=== PATIENT | female | born 1970 | race African-American/Black ===

== ENCOUNTER 2021-01-31 21:09 | Emergency (ER) | payer MEDICARE, MEDICAID ==
[~2021-01-31] VITALS: Ht 162.6 cm; Wt 62.5 kg
[~2021-01-31 21:09] MED LIST: BUPR-49 PO; CHLO100T31 PO; DIVA-112 PO
[2021-01-31] MEDS ORDERED: SODIUM CHLORIDE 0.9% 1,000 ML IV ONE (22:30)
[2021-01-31 22:43] LABS: BASOPHILS % (AUTO) 0.8 % (0.0-2.0); EOSINOPHILS % (AUTO) 0.5 % (1.0-6.0); HEMATOCRIT 42.8 % (36-46); HEMOGLOBIN 14.2 g/dL (12.0-16.0); LYMPHOCYTES # (AUTO) 2.8 K/uL (1.0-4.8); LYMPHOCYTES % (AUTO) 38.6 % (22.0-44.0); MEAN CORPUSCULAR HEMOGLOBIN 32.3 pg (26.0-34.0); MEAN CORPUSCULAR HGB CONC 33.2 G/dL (31.0-37.0); MEAN CORPUSCULAR VOLUME 98 fL (80-100); MONOCYTES # (AUTO) 0.7 K/uL (0.1-1.0); MONOCYTES % (AUTO) 9.3 % (2.0-9.0); NEUTROPHILS # (AUTO) 3.7 K/uL (1.8-7.7); NEUTROPHILS % (AUTO) 50.8 % (40.0-70.0); PLATELET COUNT (AUTO) 403 K/uL (150-450); RED BLOOD CELL COUNT(AUTO) 4.39 MIL/uL (4.00-5.20); RED CELL DISTRIBUTION WIDTH 13.1 % (11.5-14.5)
[2021-01-31 22:55] LABS: ANION GAP 14 mmol/L (8-16); CARBON DIOXIDE 25 mmol/L (22-29); CHLORIDE 104 mmol/L (98-107); CREATININE 0.77 mg/dL (0.60-1.30); GLOMERULAR FILTR. RATE CALC > 60 mL/min (>60); GLUCOSE,RANDOM 113 mg/dL (70-110); POTASSIUM 3.2 mmol/L (3.5-5.1); SODIUM SERUM 143 mmol/L (136-145); UREA NITROGEN, BLOOD 12 mg/dL (7-18)
[2021-01-31 23:02] LABS: ALANINE AMINOTRANSFERASE 54 U/L (12-78); ALBUMIN 3.9 g/dL (3.4-5.0); ALKALINE PHOSPHATASE 202 U/L (46-116); ASPARTATE AMINOTRANSFERASE 38 U/L (15-37); BILIRUBIN,TOTAL 0.2 mg/dL (0.1-1.0); TOTAL PROTEIN, SERUM 7.9 g/dL (6.4-8.2)
[2021-02-01 05:00] LABS: AMPHET/METH SCREEN,URINE NEGATIVE (NEGATIVE); BARBITURATE SCREEN, URINE NEGATIVE (NEGATIVE); BENZODIAZEPINES SCREEN,URINE NEGATIVE (NEGATIVE); CANNABINOID SCREEN,URINE NEGATIVE (NEGATIVE); COCAINE SCREEN,URINE NEGATIVE (NEGATIVE); METHADONE SCREEN, URINE NEGATIVE (NEGATIVE); OPIATE SCREEN,URINE NEGATIVE (NEGATIVE)
[2021-02-01 05:01] LABS: PHENCYCLIDINE SCREEN,URINE NEGATIVE (NEGATIVE)
[2021-02-01 05:30] VITALS: BP 115/72
== END 2021-02-01 06:00 | disposition home or self-care (01) ==
LOC: EMS 21:09
DX: F10.129 Alcohol abuse with intoxication, unspecified (principal); E87.6 Hypokalemia; Y90.8 Blood alcohol level of 240 mg/100 ml or more
CPT/HCPCS: 36415; 80053; 80307; 85025; 96360; 99284; G0480

== ENCOUNTER 2021-07-06 00:10 | Inpatient (IN) | payer MEDICARE, MEDICAID ==
[~2021-07-06] VITALS: Ht 162.6 cm; Wt 57.7 kg
[~2021-07-06 00:10] MED LIST changes: -BUPR-49 PO; -CHLO100T31 PO; -DIVA-112 PO; +DIVA-80 PO; +MELA5TAB40 PO; +NALT50TA PO; +OLAN5TAB94 PO; +OMEG-135 PO
[2021-07-06] MEDS ORDERED: LORazepam 2 MG/ML VIAL IM ONE ×2 (00:45→01:15)
[2021-07-06] MEDS ORDERED: DiphenhydrAMINE HCL 50 MG/ML VIAL IM ONE (00:45)
[2021-07-06] MEDS ORDERED: HALOPERIDOL LACTATE 5 MG/ML VIAL IM ONE (00:45)
[2021-07-06 01:34] LABS: COVID AG,FIA SOURCE NASOPHARYNGEAL
[2021-07-06 03:31] LABS: HEMATOCRIT 38.8 % (36-46); HEMOGLOBIN 12.8 g/dL (12.0-16.0); MEAN CORPUSCULAR HEMOGLOBIN 32.1 pg (26.0-34.0); MEAN CORPUSCULAR VOLUME 97 fL (80-100); PLATELET COUNT (AUTO) 248 K/uL (150-450); RED BLOOD CELL COUNT(AUTO) 3.99 MIL/uL (4.00-5.20); RED CELL DISTRIBUTION WIDTH 12.2 % (11.5-14.5)
[2021-07-06 03:41] LABS: ALANINE AMINOTRANSFERASE 78 U/L (12-78); ALBUMIN 3.3 g/dL (3.4-5.0); ALKALINE PHOSPHATASE 155 U/L (46-116); ASPARTATE AMINOTRANSFERASE 67 U/L (15-37); BILIRUBIN,TOTAL 0.6 mg/dL (0.1-1.0); CALCIUM, TOTAL 8.7 mg/dL (8.8-10.5); CARBON DIOXIDE 26 mmol/L (22-29); CHLORIDE 101 mmol/L (98-107); GLOMERULAR FILTR. RATE CALC > 60 mL/min (>60); GLUCOSE,RANDOM 95 mg/dL (70-110); TOTAL PROTEIN, SERUM 6.7 g/dL (6.4-8.2); UREA NITROGEN, BLOOD 12 mg/dL (7-18)
[2021-07-06 03:53] LABS: BAND NEUTROPHILS % (MANUAL) 4 % (0-5); LYMPHOCYTES % (MANUAL) 19 % (22-44); MONOCYTES % (MANUAL) 21 % (2-9); SEGMENTED NEUTROPHILS % 56 % (40-70)
[2021-07-06 03:57] LABS: VALPROIC ACID < 3 mcg/mL (50-100)
[2021-07-06 03:59] LABS: ANION GAP 16 mmol/L (8-16); POTASSIUM 3.1 mmol/L (3.5-5.1); SODIUM SERUM 143 mmol/L (136-145)
[2021-07-06] MEDS ORDERED: POTASSIUM CHLORIDE 10% 40 MEQ/30 ML LIQUID UDCUP PO ONE (05:00)
[2021-07-06] MEDS ORDERED: GuaiFENesin/D-METHORPHAN [SUGAR-FREE] 200-20MG/10 ML SYRUP UDCUP PO PRN (09:30)
[2021-07-06] MEDS ORDERED: MAGNESIUM HYDROXIDE SUSPENSION 30 ML UDCUP PO PRN (09:30)
[2021-07-06] MEDS ORDERED: LOPERAMIDE HCL 2 MG CAPSULE PO PRN (09:30)
[2021-07-06] MEDS ORDERED: INFLUENZA VIRUS VACCINE QVS 2021-22 (6MO+)/PF 60 MCG/0.5 ML SYRINGE IM. ONE (09:30)
[2021-07-06] MEDS ORDERED: PALIPERIDONE PALMITATE 234 MG/1.5 ML SYRINGE IM ONE (09:30)
[2021-07-06] MEDS ORDERED: HydrOXYzine PAMOATE 50 MG CAPSULE PO PRN (09:30)
[2021-07-06] MEDS ORDERED: PROMETHAZINE HCL 25 MG TABLET PO PRN (09:30)
[2021-07-06] MEDS ORDERED: MAG HYDROX/AL HYDROX/SIMETH ES 30 ML SUSPENSION UDCUP PO PRN (09:30)
[2021-07-06 10:23] VITALS: BP 122/42
[2021-07-06] MEDS: THIAMINE 100 MG TABLET PO SCH (16:41)
[2021-07-06 17:40] VITALS: BP 104/69
[2021-07-06] MEDS: OLANZapine 5 MG RAPDIS TABLET PO SCH (20:27)
[2021-07-06] MEDS: DIVALPROEX SODIUM 500 MG ER TABLET PO SCH (20:27)
[2021-07-06] MEDS: MELATONIN 5 MG TABLET PO SCH (20:27)
[2021-07-07 01:02] VITALS: BP 102/77
[2021-07-07 08:38] LABS: CHOL/HDL RATIO 3.7 (3.9-5.7)
[2021-07-07 08:49] LABS: HEMOGLOBIN A1C 5.6 % (3.8-5.6)
[2021-07-07] MEDS: MULTIVITAMINS WITH MINERALS, THERAPEUTIC TABLET PO SCH (09:31)
[2021-07-07] MEDS: OMEGA-3/DHA/EPA/FISH OIL 1,000 MG CAPSULE PO SCH (09:31)
[2021-07-07] MEDS: NALTREXONE HCL 50 MG TABLET PO SCH (09:31)
[2021-07-07] MEDS: FOLIC ACID 1 MG TABLET PO SCH (09:31)
[2021-07-07] MEDS: ATORVASTATIN CALCIUM 10 MG TABLET PO SCH (09:32)
[2021-07-07] MEDS: THIAMINE 100 MG TABLET PO SCH ×2 (09:32→16:38)
[2021-07-07] MEDS: LORazepam 2 MG TABLET PO PRN (11:55)
[2021-07-07 16:08] VITALS: BP 137/88
[2021-07-07] MEDS: DIVALPROEX SODIUM 500 MG ER TABLET PO SCH (20:20)
[2021-07-07] MEDS: OLANZapine 5 MG RAPDIS TABLET PO SCH (20:20)
[2021-07-07] MEDS: MELATONIN 5 MG TABLET PO SCH (20:20)
[2021-07-07] MEDS: ZOLPIDEM TARTRATE 10 MG TABLET PO PRN (20:22)
[2021-07-08 01:25] VITALS: BP 124/77
[2021-07-08] MEDS: THIAMINE 100 MG TABLET PO SCH ×2 (07:51→20:42)
[2021-07-08] MEDS: FOLIC ACID 1 MG TABLET PO SCH (07:51)
[2021-07-08] MEDS: MULTIVITAMINS WITH MINERALS, THERAPEUTIC TABLET PO SCH (07:51)
[2021-07-08] MEDS: NALTREXONE HCL 50 MG TABLET PO SCH (07:51)
[2021-07-08] MEDS: OMEGA-3/DHA/EPA/FISH OIL 1,000 MG CAPSULE PO SCH (07:51)
[2021-07-08] MEDS: LORazepam 2 MG TABLET PO PRN (07:51)
[2021-07-08] MEDS: ATORVASTATIN CALCIUM 10 MG TABLET PO SCH (07:51)
[2021-07-08] MEDS: OLANZapine 5 MG RAPDIS TABLET PO PRN (08:01)
[2021-07-08] MEDS ORDERED: LORazepam 2 MG/ML VIAL IM ONE (17:30)
[2021-07-08] MEDS ORDERED: HALOPERIDOL LACTATE 5 MG/ML VIAL IM ONE (17:30)
[2021-07-08] MEDS: MELATONIN 5 MG TABLET PO SCH (20:42)
[2021-07-08] MEDS: DIVALPROEX SODIUM 500 MG ER TABLET PO SCH (20:43)
[2021-07-08] MEDS: OLANZapine 5 MG RAPDIS TABLET PO SCH (20:43)
[2021-07-09 01:09] VITALS: BP 118/72
[2021-07-09 08:13] VITALS: BP 122/74
[2021-07-09] MEDS: THIAMINE 100 MG TABLET PO SCH ×2 (08:32→16:22)
[2021-07-09] MEDS: NALTREXONE HCL 50 MG TABLET PO SCH (08:34)
[2021-07-09] MEDS: LORazepam 2 MG TABLET PO PRN ×2 (08:34→14:27)
[2021-07-09] MEDS: ATORVASTATIN CALCIUM 10 MG TABLET PO SCH (08:34)
[2021-07-09] MEDS: MULTIVITAMINS WITH MINERALS, THERAPEUTIC TABLET PO SCH (08:34)
[2021-07-09] MEDS: OMEGA-3/DHA/EPA/FISH OIL 1,000 MG CAPSULE PO SCH (08:34)
[2021-07-09] MEDS: FOLIC ACID 1 MG TABLET PO SCH (08:34)
[2021-07-09] MEDS: VALPROIC ACID 250 MG/5 ML SOLUTION UDCUP PO SCH ×2 (09:00→16:22)
[2021-07-09] MEDS: OLANZapine 5 MG RAPDIS TABLET PO PRN (09:35)
[2021-07-09 16:08] VITALS: BP 150/71
[2021-07-09] MEDS: MELATONIN 5 MG TABLET PO SCH (20:19)
[2021-07-09] MEDS: OLANZapine 5 MG RAPDIS TABLET PO SCH (20:19)
[2021-07-10 01:37] VITALS: BP 134/73
[2021-07-10] MEDS: ATORVASTATIN CALCIUM 10 MG TABLET PO SCH (08:17)
[2021-07-10] MEDS: FOLIC ACID 1 MG TABLET PO SCH (08:26)
[2021-07-10] MEDS: THIAMINE 100 MG TABLET PO SCH ×2 (08:26→15:58)
[2021-07-10] MEDS: NALTREXONE HCL 50 MG TABLET PO SCH (08:26)
[2021-07-10] MEDS: MULTIVITAMINS WITH MINERALS, THERAPEUTIC TABLET PO SCH (08:26)
[2021-07-10] MEDS: LORazepam 2 MG TABLET PO PRN ×2 (08:26→13:13)
[2021-07-10] MEDS: OMEGA-3/DHA/EPA/FISH OIL 1,000 MG CAPSULE PO SCH (08:26)
[2021-07-10] MEDS: OLANZapine 5 MG RAPDIS TABLET PO PRN (08:27)
[2021-07-10] MEDS: VALPROIC ACID 250 MG/5 ML SOLUTION UDCUP PO SCH ×3 (08:28→15:54)
[2021-07-10 08:39] VITALS: BP 101/73
[2021-07-10] MEDS ORDERED: PALIPERIDONE PALMITATE 156 MG/ML SYRINGE IM ONE (09:00)
[2021-07-10 16:06] VITALS: BP 127/83
[2021-07-10] MEDS: OLANZapine 5 MG RAPDIS TABLET PO SCH (19:48)
[2021-07-10] MEDS: MELATONIN 5 MG TABLET PO SCH (19:48)
[2021-07-11 00:30] VITALS: BP 114/73
[2021-07-11] MEDS: NALTREXONE HCL 50 MG TABLET PO SCH (08:34)
[2021-07-11] MEDS: FOLIC ACID 1 MG TABLET PO SCH (08:34)
[2021-07-11] MEDS: MULTIVITAMINS WITH MINERALS, THERAPEUTIC TABLET PO SCH (08:34)
[2021-07-11] MEDS: OMEGA-3/DHA/EPA/FISH OIL 1,000 MG CAPSULE PO SCH (08:34)
[2021-07-11] MEDS: VALPROIC ACID 250 MG/5 ML SOLUTION UDCUP PO SCH ×2 (08:34→16:17)
[2021-07-11] MEDS: THIAMINE 100 MG TABLET PO SCH ×2 (08:34→16:17)
[2021-07-11 08:35] VITALS: BP 119/76
[2021-07-11] MEDS: ATORVASTATIN CALCIUM 10 MG TABLET PO SCH (08:35)
[2021-07-11] MEDS: OLANZapine 5 MG RAPDIS TABLET PO PRN (08:35)
[2021-07-11] MEDS: LORazepam 2 MG TABLET PO PRN (08:35)
[2021-07-11] MEDS: MELATONIN 5 MG TABLET PO SCH (20:03)
[2021-07-11] MEDS: OLANZapine 5 MG RAPDIS TABLET PO SCH (20:04)
[2021-07-11] MEDS: ZOLPIDEM TARTRATE 10 MG TABLET PO PRN (20:04)
[2021-07-12 00:25] VITALS: BP 116/73
[2021-07-12 08:23] VITALS: BP 120/79
[2021-07-12] MEDS: OMEGA-3/DHA/EPA/FISH OIL 1,000 MG CAPSULE PO SCH (08:45)
[2021-07-12] MEDS: ATORVASTATIN CALCIUM 10 MG TABLET PO SCH (08:45)
[2021-07-12] MEDS: THIAMINE 100 MG TABLET PO SCH ×2 (08:45→16:19)
[2021-07-12] MEDS: MULTIVITAMINS WITH MINERALS, THERAPEUTIC TABLET PO SCH (08:45)
[2021-07-12] MEDS: VALPROIC ACID 250 MG/5 ML SOLUTION UDCUP PO SCH ×2 (08:45→16:19)
[2021-07-12] MEDS: NALTREXONE HCL 50 MG TABLET PO SCH (08:45)
[2021-07-12] MEDS: FOLIC ACID 1 MG TABLET PO SCH (08:45)
[2021-07-12] MEDS: LORazepam 2 MG TABLET PO PRN (09:05)
[2021-07-12] MEDS: OLANZapine 5 MG RAPDIS TABLET PO PRN (09:05)
[2021-07-12 16:07] VITALS: BP 131/91
[2021-07-12] MEDS: MELATONIN 5 MG TABLET PO SCH (20:55)
[2021-07-12] MEDS: OLANZapine 5 MG RAPDIS TABLET PO SCH (20:57)
[2021-07-13 01:27] VITALS: BP 123/74
[2021-07-13 08:12] VITALS: BP 128/80
[2021-07-13] MEDS: MULTIVITAMINS WITH MINERALS, THERAPEUTIC TABLET PO SCH (09:41)
[2021-07-13] MEDS: VALPROIC ACID 250 MG/5 ML SOLUTION UDCUP PO SCH ×2 (09:41→16:41)
[2021-07-13] MEDS: FOLIC ACID 1 MG TABLET PO SCH (09:41)
[2021-07-13] MEDS: NALTREXONE HCL 50 MG TABLET PO SCH (09:42)
[2021-07-13] MEDS: THIAMINE 100 MG TABLET PO SCH ×2 (09:42→16:41)
[2021-07-13] MEDS: ATORVASTATIN CALCIUM 10 MG TABLET PO SCH (09:42)
[2021-07-13] MEDS: OMEGA-3/DHA/EPA/FISH OIL 1,000 MG CAPSULE PO SCH (09:45)
[2021-07-13 14:37] LABS: GLUCOMETER DEV NAME(LOC) POC.BV
[2021-07-13] MEDS: BENZOCAINE 10% 7 GM GEL TP PRN (15:01)
[2021-07-13] MEDS: ACETAMINOPHEN 325 MG TABLET PO PRN (15:05)
[2021-07-13 16:11] VITALS: BP 139/76
[2021-07-13] MEDS: AMOXICILLIN TRIHYDRATE 500 MG CAPSULE PO SCH (16:41)
[2021-07-13] MEDS: MELATONIN 5 MG TABLET PO SCH (20:02)
[2021-07-13] MEDS: OLANZapine 5 MG RAPDIS TABLET PO SCH (20:03)
[2021-07-14 01:44] VITALS: BP 123/72
[2021-07-14] MEDS: BENZOCAINE 10% 7 GM GEL TP PRN (06:17)
[2021-07-14] MEDS: VALPROIC ACID 250 MG/5 ML SOLUTION UDCUP PO SCH ×2 (08:05→16:38)
[2021-07-14] MEDS: OMEGA-3/DHA/EPA/FISH OIL 1,000 MG CAPSULE PO SCH (08:05)
[2021-07-14] MEDS: FOLIC ACID 1 MG TABLET PO SCH (08:06)
[2021-07-14] MEDS: NALTREXONE HCL 50 MG TABLET PO SCH (08:06)
[2021-07-14] MEDS: MULTIVITAMINS WITH MINERALS, THERAPEUTIC TABLET PO SCH (08:06)
[2021-07-14] MEDS: ATORVASTATIN CALCIUM 10 MG TABLET PO SCH (08:06)
[2021-07-14] MEDS: AMOXICILLIN TRIHYDRATE 500 MG CAPSULE PO SCH ×3 (08:06→16:38)
[2021-07-14] MEDS: THIAMINE 100 MG TABLET PO SCH ×2 (08:08→16:38)
[2021-07-14] MEDS: LORazepam 2 MG TABLET PO PRN ×3 (08:08→16:38)
[2021-07-14] MEDS: OLANZapine 5 MG RAPDIS TABLET PO PRN (08:09)
[2021-07-14 08:29] VITALS: BP 132/69
[2021-07-14 16:12] VITALS: BP 108/66
[2021-07-14] MEDS: OLANZapine 10 MG RAPDIS TABLET PO SCH (20:37)
[2021-07-14] MEDS: MELATONIN 5 MG TABLET PO SCH (20:37)
[2021-07-15 02:18] VITALS: BP 102/68
[2021-07-15] MEDS: ACETAMINOPHEN 325 MG TABLET PO PRN (05:37)
[2021-07-15 08:20] VITALS: BP 125/76
[2021-07-15] MEDS: VALPROIC ACID 250 MG/5 ML SOLUTION UDCUP PO SCH ×2 (08:20→16:13)
[2021-07-15] MEDS: ATORVASTATIN CALCIUM 10 MG TABLET PO SCH (08:20)
[2021-07-15] MEDS: FOLIC ACID 1 MG TABLET PO SCH (08:20)
[2021-07-15] MEDS: AMOXICILLIN TRIHYDRATE 500 MG CAPSULE PO SCH ×3 (08:20→16:13)
[2021-07-15] MEDS: THIAMINE 100 MG TABLET PO SCH ×2 (08:20→16:13)
[2021-07-15] MEDS: MULTIVITAMINS WITH MINERALS, THERAPEUTIC TABLET PO SCH (08:20)
[2021-07-15] MEDS: NALTREXONE HCL 50 MG TABLET PO SCH (08:20)
[2021-07-15] MEDS: LORazepam 2 MG TABLET PO PRN ×2 (08:21→12:26)
[2021-07-15] MEDS: OMEGA-3/DHA/EPA/FISH OIL 1,000 MG CAPSULE PO SCH (08:21)
[2021-07-15] MEDS: OLANZapine 5 MG RAPDIS TABLET PO PRN (08:22)
[2021-07-15 16:14] VITALS: BP 128/76
[2021-07-15] MEDS ORDERED: OMEG-135 PO (16:16)
[2021-07-15] MEDS ORDERED: OLAN10TA26 PO (16:16)
[2021-07-15] MEDS ORDERED: MELA5TAB40 PO (16:16)
[2021-07-15] MEDS ORDERED: VALP250S23 PO (16:16)
[2021-07-15] MEDS ORDERED: NALT50TA PO (16:16)
[2021-07-15] MEDS: MELATONIN 5 MG TABLET PO SCH (20:14)
[2021-07-15] MEDS: OLANZapine 10 MG RAPDIS TABLET PO SCH (20:14)
[2021-07-15] MEDS: ZOLPIDEM TARTRATE 10 MG TABLET PO PRN (20:14)
[2021-07-16 01:06] VITALS: BP 130/68
[2021-07-16] MEDS: ACETAMINOPHEN 325 MG TABLET PO PRN (06:53)
[2021-07-16 08:20] VITALS: BP 122/69
[2021-07-16] MEDS: FOLIC ACID 1 MG TABLET PO SCH (08:22)
[2021-07-16] MEDS: OMEGA-3/DHA/EPA/FISH OIL 1,000 MG CAPSULE PO SCH (08:22)
[2021-07-16] MEDS: ATORVASTATIN CALCIUM 10 MG TABLET PO SCH (08:22)
[2021-07-16] MEDS: MULTIVITAMINS WITH MINERALS, THERAPEUTIC TABLET PO SCH (08:22)
[2021-07-16] MEDS: VALPROIC ACID 250 MG/5 ML SOLUTION UDCUP PO SCH (08:22)
[2021-07-16] MEDS: NALTREXONE HCL 50 MG TABLET PO SCH (08:24)
[2021-07-16] MEDS: AMOXICILLIN TRIHYDRATE 500 MG CAPSULE PO SCH ×2 (08:24→12:32)
[2021-07-16] MEDS: THIAMINE 100 MG TABLET PO SCH (08:25)
[2021-07-16] MEDS ORDERED: ATOR10TA84 PO (10:00)
[2021-07-16] MEDS ORDERED: AMOX500C2 PO (10:00)
== END 2021-07-16 13:00 | disposition home or self-care (01) | DRG 885 ==
LOC: EMS 00:13 → B3A 04:00
PROVIDERS: ADMIT Psychiatry & Neurology Psychiatry; ATTEND Psychiatry & Neurology Psychiatry
DX: F25.9 Schizoaffective disorder, unspecified (principal); E78.5 Hyperlipidemia, unspecified; F12.90 Cannabis use, unspecified, uncomplicated; G89.29 Other chronic pain; G40.409 Other generalized epilepsy and epileptic syndromes, not intractable, without status epilepticus; Z55.9 Problems related to education and literacy, unspecified; Z59.9 Problem related to housing and economic circumstances, unspecified; Z65.3 Problems related to other legal circumstances; Z79.899 Other long term (current) drug therapy; Z91.19 Patient's noncompliance with other medical treatment and regimen; Z59.00 Homelessness unspecified; Z20.822 Contact with and (suspected) exposure to COVID-19
CPT/HCPCS: 80053; 80061; 80164; 83036; 84132; 85025; 86592; 90686; 99291; G0480; J1200; J1630; J2060; Q9967